=== PATIENT | female | born 1935 | race Caucasian/White ===

== ENCOUNTER 2019-02-03 08:54 | Day surgery (SDC) | payer MEDICARE ==
[~2019-02-03] VITALS: Ht 162.6 cm; Wt 63.2 kg
[2019-02-03 10:25] VITALS: BP 172/76; PULSE 60; RESP 17
[2019-02-03] MEDS ORDERED: MAGNESIUM OXIDE (10:36)
[2019-02-03] MEDS ORDERED: RESTASIS (10:36)
[2019-02-03] MEDS ORDERED: LEVOTHYROXINE (10:36)
[2019-02-03] MEDS ORDERED: MULTIVITAMIN (10:36)
[2019-02-03] MEDS ORDERED: SOLIFENACIN (10:36)
[2019-02-03] MEDS ORDERED: [UNRECOGNIZED DRUG - REMARK] (10:36)
[2019-02-03] MEDS ORDERED: PREGABALIN (10:36)
[2019-02-03] MEDS ORDERED: CRANBERRY TABLET (10:36)
[2019-02-03] MEDS ORDERED: TYLENOL PRN (10:36)
[2019-02-03] MEDS ORDERED: CREON DR (10:36)
[2019-02-03] MEDS ORDERED: MYLANTA (10:36)
[2019-02-03] MEDS ORDERED: COLACE (10:36)
[2019-02-03] MEDS ORDERED: NITROGLYCERIN SL (10:36)
[2019-02-03] MEDS ORDERED: DULCOLAX (10:36)
[2019-02-03] MEDS ORDERED: SENNA (10:36)
[2019-02-03] MEDS ORDERED: INSULIN LISPRO (10:36)
[2019-02-03] MEDS ORDERED: PROTONIX (10:36)
[2019-02-03 10:41] VITALS: Ht 162.6 cm; Wt 63.2 kg
[2019-02-03] MEDS ORDERED: ATORVASTATIN (10:46)
[2019-02-03] MEDS ORDERED: CARVEDILOL (10:46)
[2019-02-03] MEDS ORDERED: [UNRECOGNIZED DRUG - REMARK] (10:46)
[2019-02-03] MEDS ORDERED: VITAMIN C (10:46)
[2019-02-03] MEDS ORDERED: ZINC SULFATE (10:46)
[2019-02-03] MEDS ORDERED: ZOLOFT (10:46)
[2019-02-03] MEDS ORDERED: ALENDRONATE (10:46)
[2019-02-03] MEDS ORDERED: ZOFRAN PRN (10:46)
--- NOTE | 2019-02-03 11:02 | PREAC ---
Date/Time of Note Date/Time of Note DATE: 02/03/19 TIME: 10:58 Anesthesia Eval and Record Evaluation Time Pre-Procedure Interview DATE: 02/03/19 TIME: 10:58 Age 83 Sex female NPO: 8 hrs Preoperative diagnosis Rectal bleeding Planned procedure Colonoscopy Past Medical History Past Medical History: Includes Cardio: HTN, Dyslipidemia, Arrythmia Endo: Diabetes Pulm: COPD Neuro: CVA, Other (Dementia) Surgery & Anesthesia Issues No known issue Meds Anticoagulation: Yes Beta Pradeep within 24 hr: No Reason Beta Pradeep not given: Pt. not on B-Pradeep Reported Medications [Zofran Prn] No Conflict Check 02/03/19 [Zinc Sulfate] No Conflict Check 02/03/19 [Vitamin C] No Conflict Check 02/03/19 [Zoloft] No Conflict Check 02/03/19 [Carvedilol] No Conflict Check 02/03/19 [Atorvastatin] No Conflict Check 02/03/19 [Aspirin (On Hold)] No Conflict Check 02/03/19 [Alendronate] No Conflict Check 02/03/19 [Tylenol Prn] No Conflict Check 02/03/19 [Solifenacin] No Conflict Check 02/03/19 [Senna] No Conflict Check 02/03/19 [Restasis] No Conflict Check 02/03/19 [Protonix] No Conflict Check 02/03/19 [Pregabalin] No Conflict Check 02/03/19 [Nitroglycerin Sl ] No Conflict Check 02/03/19 [Mylanta] No Conflict Check 02/03/19 [Multivitamin] No Conflict Check 02/03/19 [Magnesium Oxide] No Conflict Check 02/03/19 [Levothyroxine] No Conflict Check 02/03/19 [Insulin Lispro] No Conflict Check 02/03/19 [Eliquis (On Hold)] No Conflict Check 02/03/19 [Dulcolax] No Conflict Check 02/03/19 [Creon Dr] No Conflict Check 02/03/19 [Cranberry Tablet] No Conflict Check 02/03/19 [Colace] No Conflict Check 02/03/19 Meds reviewed: Yes Allergies Coded Allergies: No Known Allergy (Unverified , 02/03/19) Allergies Reviewed: Yes Labs/Studies Labs Reviewed: Reviewed by anesthesiologist test: N/A Studies: ECG Pre-procedure Exam Last vitals BP:110/56, P:78, Spo2:99%, T:98,9 Airway: Adequate mouth opening, Adequate thyromental dist Mallampati: Mallampati II Teeth: Normal Lung: Normal Heart: Normal ASA Physical Status ASA physical status: 4 Emergency: None Planned Anesthetic General/MAC: MAC Planned Pain Management Parenteral pain med Pre-operative Attestations Prior to commencing anesthesia and surgery, the patient was re-evaluated, there was verification of: *The patient's identity *The results of appropriate recent lab work and preoperative vital signs *The above evaluation not changing prior to induction *Anesthetic plan, risk benefits, alternative and complications discussed with patient/family; questions answered; patient/family understands, accepts and wishes to proceed. SERA SALEEM MD Feb 03, 2019 11:02
[2019-02-03] MEDS ORDERED: PROPOFOL 20 ML ONE (11:12)
[2019-02-03] MEDS ORDERED: LIDOCAINE 2% (SDV) 5 ML INJ ONE (11:12)
--- NOTE | 2019-02-03 11:46 | PAC ---
Date/Time of Note Date/Time of Note DATE: 02/03/19 TIME: 11:46 Post-Anesthesia Notes Post-Anesthesia Note Activity: WNL Respiratory function: WNL Cardiovascular function: WNL Mental status: Baseline Pain reasonably controlled: Yes Hydration appropriate: Yes Nausea/Vomiting absent: Yes Comments BP:112/56, P:68, Spo2;100%, T:98,9 SERA SALEEM MD Feb 03, 2019 11:46
[2019-02-03 12:10] VITALS: BP 195/85; RESP 21
== END 2019-02-03 12:31 | disposition home or self-care (01) ==
LOC: GIL 08:54
PROVIDERS: ATTEND Internal Medicine Gastroenterology
DX: K92.1 Melena (principal); E11.9 Type 2 diabetes mellitus without complications; I10 Essential (primary) hypertension; E78.5 Hyperlipidemia, unspecified; J44.9 Chronic obstructive pulmonary disease, unspecified; Z86.73 Personal history of transient ischemic attack (TIA), and cerebral infarction without residual deficits; F03.90 Unspecified dementia, unspecified severity, without behavioral disturbance, psychotic disturbance, mood disturbance, and anxiety; Z79.01 Long term (current) use of anticoagulants
CPT/HCPCS: 82962